=== PATIENT | female | born 2000 | race African-American/Black ===

== ENCOUNTER 2022-04-13 07:23 | Emergency (ER) | payer SELFPAY ==
[~2022-04-13] VITALS: Ht 167.6 cm; Wt 60.0 kg
[2022-04-13 07:43] VITALS: BP 111/78
[2022-04-13] MEDS ORDERED: ALBE200T8 PO (08:23)
== END 2022-04-13 08:43 | disposition home or self-care (01) ==
LOC: ER 07:23
DX: B71.9 Cestode infection, unspecified (principal)
CPT/HCPCS: 99283

== ENCOUNTER 2023-04-19 12:10 | Emergency (ER) | payer SELFPAY ==
[~2023-04-19] VITALS: Ht 167.6 cm; Wt 54.4 kg
[~2023-04-19 12:10] MED LIST: ALBE200T8 PO
[2023-04-19 12:21] VITALS: O2SAT 100
[2023-04-19] MEDS ORDERED: ONDANSETRON HCL 4MG/2ML INJ IV STA (12:28)
[2023-04-19] MEDS ORDERED: FAMOTIDINE 20MG/2ML VIAL IV STA (12:28)
[2023-04-19] MEDS ORDERED: SODIUM CHLORIDE 0.9% 1,000 ML IV ONE (12:30)
[2023-04-19 12:46] LABS: HEMATOCRIT. 38.5 % (36.0-48.0); HEMOGLOBIN. 12.5 g/dL (12.0-16.0); MEAN CORPUSCULAR HEMOGLOBIN 26.5 pg (28.0-32.0); MEAN CORPUSCULAR HGB CONC 32.3 g/dL (31.0-37.0); MEAN PLATELET VOLUME 7.8 fl (7.4-10.4); PLATELET 430 x1000/uL (130-400); RED CELL DISTRIBUTION WIDTH 14.1 % (11.6-14.6); WHITE BLOOD COUNT 13.3 x1000/uL (4.5-11.0)
[2023-04-19 12:53] LABS: DIFFERENTIAL COMMENT 1
[2023-04-19 12:56] LABS: CHLORIDE 109 mEq/L (98-107); INDEX HEMOLYSI 1 (1-3); INDEX ICTERIC 1 (1-4); INDEX LIPEMIC 1 (1-3); POTASSIUM 3.7 mEq/L (3.5-5.1); SODIUM 142 mEq/L (136-145)
[2023-04-19 12:57] LABS: HCG SCREEN NEGATIVE
[2023-04-19 13:05] LABS: ALANINE AMINOTRANSFERASE 18 IU/L (13-61); ALBUMIN 3.5 g/dL (3.4-5.0); ASPARTATE AMINOTRANSFERASE 22 IU/L (15-37); BILIRUBIN TOTAL 1.3 mg/dL (0.1-1.0); CALCIUM 8.3 mg/dL (8.5-10.1); CARBON DIOXIDE 26 mEq/L (21-32); CREATININE 0.7 mg/dL (0.6-1.3); GLUCOSE 105 mg/dL (70-105); PROTEIN TOTAL 7.2 g/dL (6.0-8.3); UREA NITROGEN BLOOD 2 mg/dL (7-21)
[2023-04-19 13:35] LABS: PLATELET ESTIMATE SLIGHTLY INCREASED
[2023-04-19 13:48] LABS: CLARITY URINE CLOUDY (CLEAR); COLOR URINE YELLOW (YELLOW); GLUCOSE URINE NEGATIVE (NEGATIVE); KETONES URINE TRACE (NEGATIVE); LEUKOCYTE ESTERASE URINE NEGATIVE (NEGATIVE); NITRITE URINE NEGATIVE (NEGATIVE); OCCULT BLOOD URINE NEGATIVE (NEGATIVE); PROTEIN URINE NEGATIVE (NEGATIVE); SPECIFIC GRAVITY URINE 1.018 (1.005-1.030); UROBILINOGEN URINE 0.2 E.U./dL (0.2-1.0)
[2023-04-19] MEDS ORDERED: ONDANSETRON HCL 4MG/2ML INJ IV NR (14:15)
[2023-04-19] MEDS ORDERED: FAMOTIDINE 20MG/2ML VIAL IV NR (14:15)
[2023-04-19] MEDS ORDERED: ONDA4TAB50 PO (14:26)
[2023-04-19 14:40] VITALS: BP 102/68; PULSE 78; RESP 18; TEMP 98.7
[2023-04-19 15:33] LABS: BACTERIA URINE TRACE; RBC URINE 0-2 /hpf (0-2); SQUAMOUS EPITHELIAL CELL URINE 1+ /lpf (RARE/1+); WBC URINE 0-2 /hpf (0-2); YEAST URINE NONE SEEN
== END 2023-04-19 16:07 | disposition home or self-care (01) ==
LOC: ER 14:28
DX: R11.2 Nausea with vomiting, unspecified (principal)
CPT/HCPCS: 80053; 81003; 81025; 84703; 83690; 85025; 36415; 96361; 96374; 96375; 99284; J3490; J2405; J7030; Z7610

== ENCOUNTER 2024-04-02 10:45 | Emergency (ER) | payer MEDICAID ==
[~2024-04-02] VITALS: Ht 165.1 cm; Wt 60.0 kg
[~2024-04-02 10:45] MED LIST changes: +ONDA4TAB50 PO
[2024-04-02 10:47] VITALS: O2SAT 97
[2024-04-02 11:15] LABS: BASOPHILS % 0.3 % (0.0-2.0); EOSINOPHILS % 1.7 % (0.0-5.0); HEMATOCRIT. 31.6 % (36.0-48.0); HEMOGLOBIN. 10.2 g/dL (12.0-16.0); LYMPHOCYTES % 17.5 % (20.0-50.0); MEAN CORPUSCULAR HEMOGLOBIN 26.4 pg (28.0-32.0); MEAN CORPUSCULAR HGB CONC 32.4 g/dL (31.0-37.0); MEAN CORPUSCULAR VOLUME 81.5 fL (81.0-99.0); MEAN PLATELET VOLUME 7.9 fl (7.4-10.4); MONOCYTES % 6.2 % (2.0-8.0); NEUTROPHILS % 74.3 % (40.0-76.0); PLATELET 275 x1000/uL (130-400); RED BLOOD CELL COUNT 3.88 mill/uL (4.2-5.4); RED CELL DISTRIBUTION WIDTH 14.5 % (11.6-14.6)
[2024-04-02] MEDS: ACETAMINOPHEN 325MG TABLET PO ONE (11:17)
[2024-04-02 11:25] LABS: CHLORIDE 109 mEq/L (98-107); POTASSIUM 3.9 mEq/L (3.5-5.1); PROTHROMBIN TIME 10.7 sec (9.6-11.0); SODIUM 139 mEq/L (136-145)
[2024-04-02 11:26] LABS: CALCIUM 9.3 mg/dL (8.7-10.4); CARBON DIOXIDE 23 mEq/L (21-32)
[2024-04-02 11:31] LABS: CREATININE 0.4 mg/dL (0.6-1.0); GLUCOSE 81 mg/dL (70-105)
[2024-04-02 11:35] LABS: UREA NITROGEN BLOOD < 5 mg/dL (9-23)
[2024-04-02 12:55] VITALS: BP 120/72; PULSE 82; RESP 15; TEMP 97.8
== END 2024-04-02 12:56 | disposition left against medical advice (07) ==
LOC: ER 10:45 → EDBEDREQ 11:14 → CANBEDREQ 12:44 → ER 12:56
DX: O00.00 Abdominal pregnancy without intrauterine pregnancy (principal); O08.9 Unspecified complication following an ectopic and molar pregnancy; O26.891 Other specified pregnancy related conditions, first trimester; V49.9XXA Car occupant (driver) (passenger) injured in unspecified traffic accident, initial encounter; Y93.89 Activity, other specified; Y92.89 Other specified places as the place of occurrence of the external cause; Y99.8 Other external cause status; Z3A.27 27 weeks gestation of pregnancy
CPT/HCPCS: 36415; 80048; 81025; 85025; 99283